=== PATIENT | male | born 1945 | race Hispanic/Latino ===

== ENCOUNTER 2024-02-13 17:07 | Inpatient (IN) | payer OTHER, MEDICAID ==
[~2024-02-13 17:07] MED LIST: Iopamidol-370 76% 500 ML MDV (1 ML CHARGE) ONE
[2024-02-13] MEDS ORDERED: Boostrix 0.5 ML (Tdap) VIAL (>/=7 yrs of age) ONE (17:11)
[2024-02-13] MEDS ORDERED: fentaNYL 50 mcg/mL 1 mL Vial ONE (17:17)
[2024-02-13 17:31] LABS: #Basophils 0.09 10x3/uL (0.0-0.2); #Eosinphils Less than 0.03 10x3/uL (0.0-0.7); %Basophils 0.8 % (0.0-1.0); %Eosinophils 0.2 % (0.0-10.0); %Lymphocytes 24.7 % (21.0-51.0); %Neutrophils 64.4 % (42.0-75.0); Hematocrit 44.8 % (42.0-52.0); Hemoglobin 15.1 g/dL (14.0-18.0); Mean Corpuscular HGB CONC 33.7 g/dL (32.0-36.0); Mean Corpuscular Hemoglobin 31.6 pg (27.0-31.0); Mean Corpuscular Volume 93.7 fL (78.0-98.0); Mean Platelet Volume 10.6 fL (7.4-10.4); Platelet Count 209 10x3/uL (130-400); RBC Distribution Width 14.8 % (11.5-14.5); Red Blood Cell (RBC) Count 4.78 mill/uL (4.70-6.10)
[2024-02-13 17:44] LABS: PTT 26.2 sec (22.9-36.1); Prothrombin Time 13.2 sec (12.0-14.7)
[2024-02-13 17:49] LABS: ALT (SGPT) 67 U/L (8-55); AST (SGOT) 63 U/L (5-34); Albumin 3.7 g/dL (3.4-4.8); Alkaline Phosphatase 80 U/L (40-110); Anion Gap 15 mmol/L (10-20); BUN (Urea Nitrogen) 21 mg/dL (8.4-25.7); Bilirubin, Total 0.7 mg/dL (0.2-1.2); Calc. Creatinine Clearance 0 mL/min (70-130); Calcium 8.9 mg/dL (7.8-10.44); Carbon Dioxide 22 mmol/L (23-31); Chloride 106 mmol/L (98-107); Estimated GFR 61; Globulin 3.5 g/dL (2.4-3.5); Glucose 147 mg/dL (83-110); Lipase 33 U/L (8-78); Potassium 3.5 mmol/L (3.5-5.1); Protein, Total 7.2 g/dL (5.8-8.1); Sodium 139 mmol/L (136-145)
[2024-02-13 19:42] LABS: Troponin I Less than 0.010 ng/mL (< 0.028)
[2024-02-13] MEDS ORDERED: Ondansetron PF 4 MG/2 ML Vial ONE (20:03)
[2024-02-13 21:20] LABS: Bacteria/HPF None Seen HPF (None Seen); Bilirubin Negative (Negative); Blood, Urine 1+ (Negative); CAUTI Indications for Culture Alt mental st,lethar; Clarity Clear (Clear); Glucose, Urine (Dipstick) Normal (Negative); Ketone, Urine Negative (Negative); Leukocyte Negative Leu/uL (Negative); Nitrite Negative (Negative); Protein, Urine (Dipstick) Negative (Neg-Trace); RBC/HPF 0-3 HPF (0-3); Squamous Epithelial None Seen HPF (0-3); WBC/HPF 0-3 HPF (0-3)
[2024-02-13 21:23] LABS: Specific Gravity, Urine 1.048 (1.002-1.036)
[2024-02-13 21:24] LABS: Urine Culture Reflex No No
[2024-02-13 23:18] VITALS: BMI 25.9
[2024-02-13] MEDS ORDERED: Dextrose 5% in Water 1,000 ML IV PRN (23:58)
[2024-02-13] MEDS ORDERED: Glucagon 1 MG/ML KIT IM PRN (23:58)
[2024-02-13] MEDS ORDERED: Dextrose 50% Abboject 50 ML SYRINGE SLOW IVP PRN (23:58)
[2024-02-13] MEDS ORDERED: Promethazine HCl 25 MG/ML VIAL IM PRN (23:58)
[2024-02-14] MEDS: Sodium Chloride 0.9% 1,000 ML IV SCH (00:10)
[2024-02-14 06:02] LABS: #Basophils 0.06 10x3/uL (0.0-0.2); %Basophils 0.7 % (0.0-1.0); %Eosinophils 0.3 % (0.0-10.0); %Lymphocytes 14.5 % (21.0-51.0); %Monocytes 8.9 % (0.0-10.0); %Neutrophils 73.9 % (42.0-75.0); Hematocrit 40.3 % (42.0-52.0); Hemoglobin 13.5 g/dL (14.0-18.0); Mean Corpuscular HGB CONC 33.5 g/dL (32.0-36.0); Mean Corpuscular Hemoglobin 31.5 pg (27.0-31.0); Mean Corpuscular Volume 93.9 fL (78.0-98.0); Mean Platelet Volume 10.7 fL (7.4-10.4); Platelet Count 181 10x3/uL (130-400); RBC Distribution Width 15.2 % (11.5-14.5); Red Blood Cell (RBC) Count 4.29 mill/uL (4.70-6.10)
[2024-02-14 07:05] LABS: Anion Gap 10 mmol/L (10-20); BUN (Urea Nitrogen) 16 mg/dL (8.4-25.7); Calc. Creatinine Clearance 76 mL/min (70-130); Calcium 8.5 mg/dL (7.8-10.44); Carbon Dioxide 25 mmol/L (23-31); Chloride 106 mmol/L (98-107); Estimated GFR 86; Glucose 134 mg/dL (83-110); Potassium 3.4 mmol/L (3.5-5.1); Sodium 138 mmol/L (136-145)
[2024-02-14] MEDS: Morphine 4 MG/ML VIAL SLOW IVP PRN (09:56)
[2024-02-14] MEDS: Famotidine 20 MG TAB PO SCH (09:57)
[2024-02-14] MEDS: traMADol HCl 50 MG TAB PO PRN (17:14)
[2024-02-14] MEDS: FLU (Fluad Triv) TS24-25 (65UP)/MF59C/PF 45 MCG/0.5 ML Syringe IM ONE (17:34)
[2024-02-15] MEDS: Ondansetron PF 4 MG/2 ML Vial IVP PRN (01:37)
[2024-02-15] MEDS: Acetaminophen 325 MG TAB PO PRN (08:53)
[2024-02-15 12:16] VITALS: BP 169/73; TEMP 99.7
== END 2024-02-15 16:30 | disposition home or self-care (01) | DRG 565 ==
LOC: ERS 17:07 → 2SW 21:34 → OBSVTOIN 23:58 → EDBD 23:58
PROVIDERS: ADMIT Surgery; ATTEND Surgery
DX: S22.20XA Unspecified fracture of sternum, initial encounter for closed fracture (principal); S02.31XA Fracture of orbital floor, right side, initial encounter for closed fracture; V89.2XXA Person injured in unspecified motor-vehicle accident, traffic, initial encounter; S70.12XA Contusion of left thigh, initial encounter; S70.11XA Contusion of right thigh, initial encounter; Z79.899 Other long term (current) drug therapy
CPT/HCPCS: 36415; 70450; 70486; 70498; 71045; 71260; 72125; 74177; 80048; 80053; 81001; 83690; 84484; 85025; 85610; 85730; 86850; 86900; 86901; 90471; 90653; 90715; 93005; 93306; 94760; 96374; 96375; G0378; G0390; J2272; J2405; J3010; J7030; Q9967